=== PATIENT | male | born 1950 | race Caucasian/White ===

== ENCOUNTER 2016-12-27 09:19 | Inpatient (IN) | payer MEDICARE, OTHER ==
[~2016-12-27] VITALS: Ht 175.3 cm; Wt 90.2 kg
[~2016-12-27 09:19] MED LIST: ASPI81TA2 PO; CLON.3 PO; ERGO2000 PO; FOLI1 PO; GABA-531 PO; OXYC5POW; PROP40TA7 PO; SIMV20TA6 PO; TELM40 PO; TIOT185 IH
[2016-12-27] MEDS ORDERED: IPRATROPIUM BROMIDE 0.5 MG/2.5 ML NEB SOLUTION NEB ONE (09:30)
[2016-12-27] MEDS ORDERED: ALBUTEROL SULFATE 5 MG/ML 20 ML NEB SOLN [BULK] NEB ONE (09:30)
[2016-12-27] MEDS ORDERED: ALBU8HFA IH (09:36)
[2016-12-27] MEDS ORDERED: LISI-660 PO (09:36)
[2016-12-27] MEDS ORDERED: 0.9% SODIUM CHLORIDE 15 ML NEB SOLUTION NEB ONE (09:53)
[2016-12-27 09:57] LABS: BASOPHILS % (AUTO) 0.5 % (0.0-2.0); EOSINOPHILS % (AUTO) 0.3 % (1.0-6.0); HEMATOCRIT 52.2 % (41-53); HEMOGLOBIN 17.7 g/dL (13.5-17.5); LYMPHOCYTES # (AUTO) 2.6 K/uL (1.0-4.8); LYMPHOCYTES % (AUTO) 16.7 % (22.0-44.0); MEAN CORPUSCULAR HEMOGLOBIN 31.5 pg (26.0-34.0); MEAN CORPUSCULAR HGB CONC 33.9 G/dL (31.0-37.0); MEAN CORPUSCULAR VOLUME 93 fL (80-100); MONOCYTES # (AUTO) 1.1 K/uL (0.1-1.0); MONOCYTES % (AUTO) 6.9 % (2.0-9.0); NEUTROPHILS # (AUTO) 11.6 K/uL (1.8-7.7); NEUTROPHILS % (AUTO) 75.6 % (40.0-70.0); PLATELET COUNT (AUTO) 293 K/uL (150-450); RED BLOOD CELL COUNT(AUTO) 5.61 MIL/uL (4.50-5.90); RED CELL DISTRIBUTION WIDTH 12.3 % (11.5-14.5); WHITE BLOOD COUNT (AUTO) 15.3 K/uL (4.5-11.0)
[2016-12-27 10:06] LABS: ANION GAP 11 mmol/L (8-16); CALCIUM, TOTAL 9.1 mg/dL (8.8-10.5); CARBON DIOXIDE 25 mmol/L (22-29); CHLORIDE 100 mmol/L (98-107); CREATININE 1.77 mg/dL (0.60-1.30); GLOMERULAR FILTR. RATE CALC 39 mL/min (>60); POTASSIUM 3.9 mmol/L (3.5-5.1); SODIUM SERUM 136 mmol/L (136-145); UREA NITROGEN, BLOOD 40 mg/dL (7-18)
[2016-12-27 10:07] LABS: PROTHROMBIN TIME 10.7 SEC (9.4-11.6)
[2016-12-27 10:30] LABS: B-TYPE NATRIURETIC PEPTIDE 8 pg/mL (0-100)
[2016-12-27 10:32] LABS: ALANINE AMINOTRANSFERASE 39 U/L (12-78); ALBUMIN 3.8 g/dL (3.4-5.0); ASPARTATE AMINOTRANSFERASE 20 U/L (15-37); BILIRUBIN,TOTAL 0.6 mg/dL (0.1-1.0); CREATINE KINASE MB 1.7 ng/mL (0-5); CREATINE KINASE, TOTAL 103 U/L (39-308)
[2016-12-27] MEDS ORDERED: MethylPREDNISolone SOD SUCC 125 MG/2 ML VIAL IVP ONE (11:15)
[2016-12-27] MEDS ORDERED: AZITHROMYCIN 500 MG/NS 250 ML IV ONE (11:15)
[2016-12-27] MEDS ORDERED: CefTRIAXone 1 GM/DEXTROSE 50 ML IV ONE (11:15)
[2016-12-27] MEDS ORDERED: OXYC5 PO (11:36)
[2016-12-27] MEDS ORDERED: CLON.1 PO (11:36)
[2016-12-27] MEDS ORDERED: ACETAMINOPHEN 325 MG TABLET PO PRN (12:00)
[2016-12-27] MEDS ORDERED: BISACODYL 10 MG RECTAL RECTAL SUPPOSITORY PR PRN (12:00)
[2016-12-27] MEDS ORDERED: HYDROCODONE/ACETAMINOPHEN 5-325 MG TABLET PO PRN (12:00)
[2016-12-27] MEDS ORDERED: ONDANSETRON HCL 4 MG/2 ML VIAL IVP PRN (12:00)
[2016-12-27] MEDS ORDERED: ALBUTEROL SULFATE 2.5 MG/0.5 ML NEB SOLUTION NEB PRN (12:00)
[2016-12-27] MEDS ORDERED: IPRATROPIUM BROMIDE 0.5 MG/2.5 ML NEB SOLUTION NEB PRN (12:00)
[2016-12-27] MEDS ORDERED: MAGNESIUM HYDROXIDE SUSPENSION 30 ML UDCUP PO PRN (12:00)
[2016-12-27] MEDS ORDERED: ZOLPIDEM TARTRATE 5 MG TABLET PO PRN (12:00)
[2016-12-27] MEDS ORDERED: MORPHINE SULFATE 2 MG/ML SYRINGE IVP PRN (12:00)
[2016-12-27] MEDS ORDERED: SODIUM CHLORIDE 0.9% 1,000 ML IV ONE ×2 (13:20→13:30)
[2016-12-27] MEDS ORDERED: SODIUM CHLORIDE 0.9% 250 ML IV ONE (13:30)
[2016-12-27 15:43] LABS: APPEARANCE,URINE CLEAR (CLEAR); GLUCOSE, URINE (UA) NEGATIVE (NEGATIVE); KETONES,URINE NEGATIVE (NEGATIVE); LEUKOCYTE ESTERASE ,URINE NEGATIVE (NEGATIVE); OCCULT BLOOD,URINE NEGATIVE (NEGATIVE); PROTEIN,URINE TRACE (NEGATIVE)
[2016-12-27 15:48] LABS: ADD UA MICROSCOPIC NO
[2016-12-27] MEDS: IPRATROPIUM BROMIDE 0.5 MG/2.5 ML NEB SOLUTION NEB SCH ×2 (15:54→21:12)
[2016-12-27] MEDS: ALBUTEROL SULFATE 2.5 MG/0.5 ML NEB SOLUTION NEB SCH ×2 (15:54→21:13)
[2016-12-27] MEDS: GABAPENTIN 300 MG CAPSULE PO SCH ×2 (16:38→21:01)
[2016-12-27] MEDS: HEPARIN SODIUM,PORCINE 5,000 UNITS/ML VIAL SQ SCH ×2 (16:39→23:52)
[2016-12-27] MEDS: BENZONATATE 100 MG CAPSULE PO SCH ×2 (16:39→21:01)
[2016-12-27] MEDS: MethylPREDNISolone SOD SUCC 125 MG/2 ML VIAL IVP SCH ×2 (18:54→23:51)
[2016-12-27 20:29] VITALS: BP 110/70
[2016-12-27] MEDS: LISINOPRIL 5 MG TABLET PO SCH (21:00)
[2016-12-27] MEDS: PROPRANOLOL HCL 40 MG TABLET PO SCH (21:01)
[2016-12-27] MEDS: GuaiFENesin SR 600 MG ER TABLET PO SCH (21:01)
[2016-12-27] MEDS: DOCUSATE SODIUM 100 MG CAPSULE PO SCH (21:01)
[2016-12-27] MEDS: SIMVASTATIN 20 MG TABLET PO SCH (21:01)
[2016-12-27] MEDS ORDERED: INFLUENZA VIRUS VACCINE QVS 2016-17 (3YR+)/PF 60 MCG/0.5 ML SYRINGE IM ONE (22:00)
[2016-12-27 23:34] VITALS: BP 99/65
[2016-12-28] VITALS (8 sets, daily range): BP systolic 104–124; BP diastolic 58–76
[2016-12-28] MEDS: IPRATROPIUM BROMIDE 0.5 MG/2.5 ML NEB SOLUTION NEB SCH ×4 (02:00→19:39)
[2016-12-28] MEDS: ALBUTEROL SULFATE 2.5 MG/0.5 ML NEB SOLUTION NEB SCH ×4 (02:37→19:39)
[2016-12-28] MEDS: MethylPREDNISolone SOD SUCC 125 MG/2 ML VIAL IVP SCH ×4 (05:24→23:33)
[2016-12-28] MEDS: PROPRANOLOL HCL 40 MG TABLET PO SCH ×2 (08:55→20:12)
[2016-12-28] MEDS: GuaiFENesin SR 600 MG ER TABLET PO SCH ×2 (08:55→20:12)
[2016-12-28] MEDS: TELMISARTAN 40 MG TABLET PO SCH (08:55)
[2016-12-28] MEDS: ASPIRIN 81 MG CHEWABLE TABLET PO SCH (08:56)
[2016-12-28] MEDS: PANTOPRAZOLE SODIUM 40 MG DR TABLET PO SCH (08:56)
[2016-12-28] MEDS: GABAPENTIN 300 MG CAPSULE PO SCH ×3 (08:56→20:12)
[2016-12-28] MEDS: DOCUSATE SODIUM 100 MG CAPSULE PO SCH ×3 (08:56→20:12)
[2016-12-28] MEDS: FOLIC ACID 1 MG TABLET PO SCH (08:56)
[2016-12-28] MEDS: LISINOPRIL 5 MG TABLET PO SCH ×2 (08:56→21:00)
[2016-12-28] MEDS: BENZONATATE 100 MG CAPSULE PO SCH ×3 (08:56→20:11)
[2016-12-28] MEDS: HEPARIN SODIUM,PORCINE 5,000 UNITS/ML VIAL SQ SCH ×3 (08:57→23:33)
[2016-12-28] MEDS: CloNIDine HCL 0.1 MG TABLET PO SCH (08:57)
[2016-12-28] MEDS ORDERED: CefTRIAXone 1 GM/DEXTROSE 50 ML IV SCH (12:00)
[2016-12-28] MEDS ORDERED: SODIUM CHLORIDE 0.9% 100 ML ONE (12:13)
[2016-12-28] MEDS ORDERED: AZITHROMYCIN 500 MG/NS 250 ML IV SCH (13:00)
[2016-12-28] MEDS: SIMVASTATIN 20 MG TABLET PO SCH (20:11)
[2016-12-29] MEDS: ALBUTEROL SULFATE 2.5 MG/0.5 ML NEB SOLUTION NEB SCH ×2 (02:26→08:50)
[2016-12-29] MEDS: IPRATROPIUM BROMIDE 0.5 MG/2.5 ML NEB SOLUTION NEB SCH ×2 (02:27→08:50)
[2016-12-29 04:38] VITALS: BP 118/67
[2016-12-29] MEDS: MethylPREDNISolone SOD SUCC 125 MG/2 ML VIAL IVP SCH (05:19)
[2016-12-29 07:24] VITALS: BP 130/86
[2016-12-29 07:36] VITALS: BP 95/55
[2016-12-29] MEDS: GABAPENTIN 300 MG CAPSULE PO SCH (07:52)
[2016-12-29] MEDS: GuaiFENesin SR 600 MG ER TABLET PO SCH (07:52)
[2016-12-29] MEDS: LISINOPRIL 5 MG TABLET PO SCH (07:53)
[2016-12-29] MEDS: PANTOPRAZOLE SODIUM 40 MG DR TABLET PO SCH (07:53)
[2016-12-29] MEDS: BENZONATATE 100 MG CAPSULE PO SCH (07:53)
[2016-12-29] MEDS: ASPIRIN 81 MG CHEWABLE TABLET PO SCH (07:53)
[2016-12-29] MEDS: TELMISARTAN 40 MG TABLET PO SCH (07:54)
[2016-12-29] MEDS: CloNIDine HCL 0.1 MG TABLET PO SCH (07:54)
[2016-12-29] MEDS: FOLIC ACID 1 MG TABLET PO SCH (07:54)
[2016-12-29] MEDS: PROPRANOLOL HCL 40 MG TABLET PO SCH (07:54)
[2016-12-29] MEDS: DOCUSATE SODIUM 100 MG CAPSULE PO SCH (07:55)
[2016-12-29] MEDS: HEPARIN SODIUM,PORCINE 5,000 UNITS/ML VIAL SQ SCH (07:55)
[2016-12-29] MEDS ORDERED: AZIT250T6 PO (10:40)
[2016-12-29] MEDS ORDERED: PRED10TA3 PO (10:40)
== END 2016-12-29 11:36 | disposition home or self-care (01) | DRG 872 ==
LOC: EMS 09:21 → AHU 12:12 → 5N 19:42
PROVIDERS: ADMIT Internal Medicine; ATTEND Internal Medicine
PROC: 3E0234Z Introduction of Serum, Toxoid and Vaccine into Muscle, Percutaneous Approach (ICD-10-PCS; principal; 2016-12-28)
DX: A41.9 Sepsis, unspecified organism (principal); J44.0 Chronic obstructive pulmonary disease with (acute) lower respiratory infection; J44.1 Chronic obstructive pulmonary disease with (acute) exacerbation; N18.3 Chronic kidney disease, stage 3 (moderate); I12.9 Hypertensive chronic kidney disease with stage 1 through stage 4 chronic kidney disease, or unspecified chronic kidney disease; E78.5 Hyperlipidemia, unspecified; E55.9 Vitamin D deficiency, unspecified; J20.9 Acute bronchitis, unspecified; E78.00 Pure hypercholesterolemia, unspecified; F17.210 Nicotine dependence, cigarettes, uncomplicated; Z72.89 Other problems related to lifestyle; Z79.82 Long term (current) use of aspirin; Z79.891 Long term (current) use of opiate analgesic; Z79.51 Long term (current) use of inhaled steroids; Z79.899 Other long term (current) drug therapy; Z98.890 Other specified postprocedural states; Z23 Encounter for immunization
CPT/HCPCS: 87040; 90471; 93005; 94640; 94644; 96365; 96368; 96375; 99285; J0456; J0696; J1644; J2930; J7030; J7050

== ENCOUNTER 2019-02-21 09:21 | Emergency (ER) | payer MEDICARE, OTHER ==
[~2019-02-21] VITALS: Ht 180.3 cm; Wt 77.3 kg
[~2019-02-21 09:21] MED LIST changes: +ALBU8HFA IH; +ASPI-1198 PO; -ASPI81TA2 PO; +AZIT250T9 PO; +CLON-570 PO; -CLON.3 PO; +LISI-660 PO; +OXYC5 PO; -OXYC5POW; +PRED10TA3 PO
[2019-02-21] MEDS ORDERED: PROPARACAINE HCL 0.5% 15 ML OPHTHALMIC SOLUTION OS ONE (11:15)
[2019-02-21] MEDS ORDERED: FLUORESCEIN SODIUM 1 MG STRIP OS ONE (11:15)
[2019-02-21] MEDS ORDERED: ALBUTEROL SULFATE 5 MG/ML 20 ML NEB SOLN [BULK] NEB ONE (11:30)
[2019-02-21] MEDS ORDERED: IPRATROPIUM BROMIDE 0.5 MG/2.5 ML NEB SOLUTION NEB ONE (11:30)
[2019-02-21] MEDS ORDERED: MethylPREDNISolone SOD SUCC 125 MG/2 ML VIAL IVP ONE (11:30)
[2019-02-21 11:31] LABS: BASOPHILS % (AUTO) 1.1 % (0.0-2.0); EOSINOPHILS % (AUTO) 4.6 % (1.0-6.0); HEMATOCRIT 52.4 % (41-53); HEMOGLOBIN 17.5 g/dL (13.5-17.5); LYMPHOCYTES # (AUTO) 2.6 K/uL (1.0-4.8); LYMPHOCYTES % (AUTO) 23.1 % (22.0-44.0); MEAN CORPUSCULAR HEMOGLOBIN 30.7 pg (26.0-34.0); MEAN CORPUSCULAR HGB CONC 33.4 G/dL (31.0-37.0); MEAN CORPUSCULAR VOLUME 92 fL (80-100); MONOCYTES # (AUTO) 0.7 K/uL (0.1-1.0); MONOCYTES % (AUTO) 6.3 % (2.0-9.0); NEUTROPHILS # (AUTO) 7.4 K/uL (1.8-7.7); NEUTROPHILS % (AUTO) 64.9 % (40.0-70.0); PLATELET COUNT (AUTO) 226 K/uL (150-450); RED CELL DISTRIBUTION WIDTH 13.3 % (11.5-14.5)
[2019-02-21 11:37] LABS: ANION GAP 9 mmol/L (8-16); CALCIUM, TOTAL 8.8 mg/dL (8.8-10.5); CARBON DIOXIDE 28 mmol/L (22-29); CHLORIDE 103 mmol/L (98-107); CREATININE 1.17 mg/dL (0.60-1.30); GLOMERULAR FILTR. RATE CALC > 60 mL/min (>60); GLUCOSE,RANDOM 121 mg/dL (70-110); SODIUM SERUM 140 mmol/L (136-145); UREA NITROGEN, BLOOD 8 mg/dL (7-18)
[2019-02-21 11:40] LABS: PROTHROMBIN TIME 10.5 SEC (9.4-11.6)
[2019-02-21 11:51] LABS: B-TYPE NATRIURETIC PEPTIDE 25 pg/mL (0-100)
[2019-02-21 12:03] LABS: ALANINE AMINOTRANSFERASE 27 U/L (12-78); ALBUMIN 3.6 g/dL (3.4-5.0); ALKALINE PHOSPHATASE 64 U/L (46-116); ASPARTATE AMINOTRANSFERASE 17 U/L (15-37); BILIRUBIN,TOTAL 0.5 mg/dL (0.1-1.0); CREATINE KINASE, TOTAL ONLY 88 U/L (39-308); TOTAL PROTEIN, SERUM 7.2 g/dL (6.4-8.2)
[2019-02-21 13:10] VITALS: BP 112/74
== END 2019-02-21 13:31 | disposition home or self-care (01) ==
LOC: EMS 09:22
DX: J44.1 Chronic obstructive pulmonary disease with (acute) exacerbation (principal); H53.8 Other visual disturbances; H54.62 Unqualified visual loss, left eye, normal vision right eye; Z79.899 Other long term (current) drug therapy; I10 Essential (primary) hypertension; E78.00 Pure hypercholesterolemia, unspecified; F17.210 Nicotine dependence, cigarettes, uncomplicated
CPT/HCPCS: 70450; 71045; 80053; 82550; 83880; 84484; 85025; 85610; 85730; 93005; 94640; 96374; 99285; J2930